=== PATIENT | female | born 2000 | race Caucasian/White ===

== ENCOUNTER 2023-11-22 20:22 | Inpatient (IN) | payer BC ==
[~2023-11-22] VITALS: Ht 165.1 cm; Wt 79.8 kg
[2023-11-22] MEDS ORDERED: PREN-543 PO (21:31)
[2023-11-22] MEDS ORDERED: MORPHINE SULFATE 10 MG/ML VIAL IVP PRN (21:45)
[2023-11-22] MEDS ORDERED: METHYLERGONOVINE 0.2 MG/ML AMP IM PRN (21:45)
[2023-11-22] MEDS ORDERED: CARBOPROST 250 MCG/ML AMP IM PRN (21:45)
[2023-11-22] MEDS ORDERED: ONDANSETRON 4 MG/2 ML VIAL IVP PRN (21:45)
[2023-11-22 22:12] LABS: APPEARANCE,URINE CLEAR (CLEAR); BILIRUBIN,URINE NEGATIVE (NEGATIVE); BLOOD, URINE 1+ (NEGATIVE); COLOR,URINE YELLOW (YELLOW); LEUKOCYTE ESTERASE ,URINE NEGATIVE (NEGATIVE); NITRITE, URINE NEGATIVE (NEGATIVE); PH,URINE 7.5 (5.0-9.0); PROTEIN,URINE NEGATIVE (NEGATIVE); UGLUCOSE NEGATIVE (NEGATIVE); UROBILINOGEN,URINE 0.2 EU/dL (0.2 - 1)
[2023-11-22 22:12] LABS: BASOPHILS % (AUTO) 0.3 % (0.0-2.0); EOSINOPHILS # (AUTO) 0.1 K/uL (0-0.4); EOSINOPHILS % (AUTO) 1.1 % (0.0-4.0); HEMATOCRIT 38.2 % (36-48); LYMPHOCYTES # (AUTO) 2.4 K/uL (2.5-16.5); MEAN CORPUSCULAR HEMOGLOBIN 30 pg (27-31); MEAN CORPUSCULAR HGB CONC 34 g/dL (33-37); MEAN CORPUSCULAR VOLUME 86.9 fL (80-94); MONOCYTES # (AUTO) 1.1 K/uL (0.8-1.0); MONOCYTES % (AUTO) 9.1 % (1.7-9.3); NEUTROPHILS # (AUTO) 8.4 K/uL (1.8-7.7); NEUTROPHILS % (AUTO) 69.5 % (42.2-75.2); PLATELET COUNT (AUTO) 253 K/uL (140-450); RED CELL DISTRIBUTION WIDTH 13.4 % (11.6-13.7); WHITE BLOOD COUNT (AUTO) 12.1 K/uL (4.8-10.8)
[2023-11-22] MEDS: LACTATED RINGERS 1,000 ML IV SCH (22:12)
[2023-11-22 22:18] LABS: BACTERIA,URINE 10-30 (MOD) /HPF (None Seen); MUCUS,URINE 1+ /LPF (None Seen); RBC,URINE 0-5 /HPF (0-5); WBC,URINE 0-5 /HPF (0-5)
[2023-11-22 22:23] LABS: INR 0.82 (0.8-1.2); PARTIAL THROMBOPLASTIN TIME 26.7 secs (22-35.6); PROTHROMBIN TIME 8.7 secs (10.8-13.4)
[2023-11-22 22:31] LABS: BARBITURATE, URINE NEGATIVE ng/ml (NEG <=200)
[2023-11-22 22:32] LABS: CALCIUM 8.6 mg/dL (8.5-10.1); CARBON DIOXIDE 23.9 mmol/L (21-32); CREATININE 0.6 mg/dL (0.6-1.3); POTASSIUM 3.9 mmol/L (3.5-5.1)
[2023-11-22 22:32] LABS: AMPHETAMINE, URINE NEGATIVE ng/ml (NEG <=1000); BENZODIAZEPINE, URINE NEGATIVE ng/mL (NEG <=200); CANNABINOID, URINE NEGATIVE ng/mL (NEG <=50); COCAINE, URINE NEGATIVE ng/mL (NEG <=300); OPIATE, URINE NEGATIVE ng/mL (NEG <=2000); PHENCYCLIDINE SCREEN,URINE NEGATIVE ng/mL (NEG <=25)
[2023-11-22 22:38] LABS: ALBUMIN 2.9 g/dL (3.4-5.0); TOTAL BILIRUBIN 0.2 mg/dL (0.0-1.0); TOTAL PROTEIN, SERUM 7.3 g/dL (6.4-8.2)
[2023-11-22 23:00] VITALS: BP 125/73; PULSE 85; RESP 18; TEMP 98.2
[2023-11-22] MEDS ORDERED: ROPIVACAINE 0.2%/NS PREMIX 200 ML EPI SCH (23:55)
[2023-11-22] MEDS ORDERED: ROPIVACAINE 0.2%/NS PREMIX 200 ML EPI ONE (23:57)
[2023-11-23] MEDS ORDERED: AMPICILLIN 2,000 MG in NACL 0.9% MINI-BAG PLUS 100 ML IV ONE
[2023-11-23] MEDS ORDERED: AMPICILLIN 1,000 MG in NACL 0.9% MINI-BAG PLUS 50 ML IV SCH (04:00)
[2023-11-23] MEDS ORDERED: OXYTOCIN/0.9 % SODIUM CHLORIDE 500 ML IV SCH (04:30)
[2023-11-23] MEDS: OXYTOCIN/0.9 % SODIUM CHLORIDE 500 ML IV SCH (08:37)
[2023-11-23] MEDS ORDERED: LIDOCAINE 1% 500 MG/50 ML VIAL ONE (12:20)
[2023-11-23] MEDS ORDERED: BENZOCAINE/MENTHOL 20%-0.5% 60 GM CAN TP PRN (14:30)
[2023-11-23] MEDS ORDERED: MEASLES, MUMPS, AND RUBELLA 1 VIAL SQVAC ONE (14:30)
[2023-11-23] MEDS ORDERED: OXYTOCIN 10 UNITS/ML VIAL IM PRN (14:30)
[2023-11-23] MEDS ORDERED: METHYLERGONOVINE 0.2 MG TAB PO PRN (14:30)
[2023-11-23] MEDS ORDERED: METHYLERGONOVINE 0.2 MG/ML AMP IM PRN (14:30)
[2023-11-23] MEDS ORDERED: MEASLES, MUMPS, AND RUBELLA 1 VIAL SQVAC PRN (14:35)
[2023-11-23] MEDS: IBUPROFEN 800 MG TAB PO PRN (14:44)
[2023-11-24 06:08] LABS: HEMATOCRIT 32.8 % (36-48); HEMOGLOBIN 11.2 g/dL (12.0-16.0)
[2023-11-24 09:06] LABS: RUBELLA AB IGG 5.74 index (Immune >0.99)
[2023-11-24 15:06] LABS: HEPATITIS B SURFACE ANTIGEN Negative (Negative)
== END 2023-11-25 15:48 | disposition home or self-care (01) | DRG 806 ==
LOC: MLD 20:22 → OBSVTOIN 21:40 → MFCC 11-23 14:55
PROVIDERS: ADMIT Obstetrics & Gynecology; ATTEND Obstetrics & Gynecology
PROC: 10E0XZZ Delivery of Products of Conception, External Approach (ICD-10-PCS; principal; 2023-11-25)
PROC: 0KQM0ZZ Repair Perineum Muscle, Open Approach (ICD-10-PCS; 2023-11-25)
PROC: 00HU33Z Insertion of Infusion Device into Spinal Canal, Percutaneous Approach (ICD-10-PCS; 2023-11-25)
PROC: 3E0R3BZ Introduction of Anesthetic Agent into Spinal Canal, Percutaneous Approach (ICD-10-PCS; 2023-11-25)
DX: O77.0 Labor and delivery complicated by meconium in amniotic fluid (principal); R71.0 Precipitous drop in hematocrit; Z37.0 Single live birth; O70.1 Second degree perineal laceration during delivery; Z3A.39 39 weeks gestation of pregnancy; Z20.822 Contact with and (suspected) exposure to COVID-19
CPT/HCPCS: 36415; 51702; 76815; 80053; 80305; 81001; 85018; 85025; 85610; 85730; 86592; 86762; 86886; 86900; 86901; 87086; 87340; J2001; J2590; J2795; Q0092